=== PATIENT | female | born 1960 | race Caucasian/White ===

== ENCOUNTER 2020-12-31 01:46 | Emergency (ER) | payer OTHER ==
[~2020-12-31] VITALS: Ht 154.9 cm; Wt 68.0 kg
[~2020-12-31 01:46] MED LIST: B COMPLEX-VITA1 EACH PO; LEVOTHYROXIN0.025 MG PO; MULTIVITAMINS1 EAC7 PO; PEPCID40 MG PO; PREDNISONE 20 M20 MG PO; VISTARIL 25 MG25 M1 PO
[2020-12-31 01:54] VITALS: BP 164/104
[2020-12-31] MEDS ORDERED: ASA81BEC PO (01:58)
[2020-12-31 02:54] LABS: URINE BILIRUBIN NEGATIVE (Negative); URINE BLOOD TRACE (Negative); URINE CLARITY CLEAR; URINE COLOR YELLOW; URINE GLUCOSE-RANDOM* NEGATIVE (Negative); URINE KETONES NEGATIVE (Negative); URINE NITRITE-REFLEX NEGATIVE (Negative); URINE PROTEIN (DIPSTICK) NEGATIVE (Negative); URINE SPECIFIC GRAVITY <= 1.005 (1.005-1.035); URINE UROBILINOGEN 0.2 E.U./dl (0.2-1.0)
[2020-12-31 02:55] LABS: URINE LEUKOCYTES-REFLEX 3+ (Negative)
[2020-12-31 03:55] LABS: CASTS None Seen /LPF (None Seen); MUCUS None Seen strn/LPF (None Seen); SQUAMOUS None Seen /LPF (0-3); TRANSITIONAL EPITHEL CELL 0-3 Few /LPF (None Seen)
[2020-12-31 03:55] LABS: ABSOLUTE NEUTROPHILS 2.3 thou/uL (1.4-8.2); BASOPHILS 0.7 % (0.0-2.0); EOSINOPHILS 2.9 % (0.0-3.0); HEMATOCRIT 40.3 % (37.0-47.0); HEMOGLOBIN 13.4 gm/dL (12.0-15.0); MCH 28.9 pg (26.0-34.0); MCHC 33.2 g/dL (28.0-37.0); MCV 87.2 fL (80.0-100.0); MONOCYTES 10.7 % (1.0-8.0); PLATELET COUNT 206 thou/uL (150-400); POLYS 46.7 % (36.0-66.0); RBC 4.62 mil/uL (4.20-5.00); RDW 12.8 % (10.5-14.5)
[2020-12-31 03:56] LABS: BACTERIA-REFLEX 1-9 Few /HPF (None Seen); CRYSTALS None Seen /LPF (None Seen); URINE RBC 1-2 Rare /HPF (NONE SEEN); URINE WBC-REFLEX 6-15 Few /HPF (0-5); WBC CLUMPS Occasional (None Seen)
[2020-12-31 04:09] LABS: CALCIUM 8.9 mg/dL (8.5-10.1); CREATININE 0.8 mg/dL (0.6-1.0); POTASSIUM 3.5 mmol/L (3.5-5.1)
[2020-12-31 04:19] LABS: ALBUMIN 3.9 g/dL (3.4-5.0); TOTAL BILIRUBIN 0.4 mg/dL (0.2-1.0)
[2020-12-31] MEDS ORDERED: PEPCID20 MG PO (04:31)
[2020-12-31] MEDS ORDERED: MACROBID 100 M100 M1 PO (04:31)
--- NOTE | 2021-01-01 12:38 | EKG ---
[facility] [place] [address] ELECTROCARDIOGRAM REPORT Name: ALYSSA CALDERA Room #: [facility] [id number] Admission: 12/31/20 Attend Phys: Discharge: 12/31/20 Date of : 62 Report #: [id number] [facility] ED Test Date: 2020-12-31 Test Time: 02:06:27 Pat Name: ALYSSA CALDERA Department: Room: Gender: F Director Of Emergency Nursing: carmen : 1960 Requested By: Smith Pappas Order Number: [id number] MD: Juan Sahu Measurements Intervals [place] Rate: 87 P: 32 GA: 150 QRS: -58 QRSD: 87 T: -16 QT: 354 QTc: 426 Interpretive Statements Sinus rhythm Left anterior fascicular block Poor R wave progression Nonspecific T wave abnormality Compared to ECG 03/04/2013 12:51:48 Exercise shifted leftward Electronically Signed On 01-01-2021 12:38:33 CDT by Juan Sahu [email or web address] <ELECTRONICALLY SIGNED> By: Juan Sahu MD, [facility] 01/01/21 1238 5 5 Juan Sahu MD, [facility] /EPI
== END 2020-12-31 04:50 | disposition home or self-care (01) ==
LOC: ER 01:46
PROVIDERS: Student in an Organized Health Care Education/Training Program
DX: R10.13 Epigastric pain (principal); Z90.710 Acquired absence of both cervix and uterus; Z79.82 Long term (current) use of aspirin; Z79.899 Other long term (current) drug therapy; Z88.0 Allergy status to penicillin; Z91.041 Radiographic dye allergy status; Z88.6 Allergy status to analgesic agent; Z88.5 Allergy status to narcotic agent; Z88.1 Allergy status to other antibiotic agents